=== PATIENT | female | born 1960 | race Caucasian/White ===

== ENCOUNTER 2017-04-18 14:32 | Inpatient (IN) | payer OTHER ==
[2017-04-18] MEDS ORDERED: VANCOMYCIN 1 GM in NS 250 ML IV ONE (14:54)
[2017-04-18] MEDS ORDERED: NS 1,000 ML IV ONE (14:54)
--- NOTE | 2017-04-18 15:07 | EDPHY ---
H & P Stated Complaint: redness left inner thigh - Personal History Current Tetanus/Diphtheria Vaccine: Yes Current Tetanus Diphtheria and Acellular Pertussis (TDAP): Yes Tetanus Vaccine Date: last 5 years - Medical/Surgical History Hx Asthma: No Hx Chronic Respiratory Disease: No Hx Diabetes: Yes Hx Cardiac Disease: No Hx Renal Disease: No Hx Cirrhosis: No Hx Alcoholism: No Hx HIV/AIDS: No Hx Splenectomy or Spleen Trauma: No Other PMH: type 2 diabetes,peripheral neuropathy - Social History Smoking Status: Never smoked Time Seen by Provider: 04/18/17 14:39 HPI/ROS: CHIEF COMPLAINT: Warm, red, tender inner thigh HISTORY OF PRESENT ILLNESS: This is a 56-year-old female with history of diabetes who reports that the right inner thigh has felt tender and sore for the last several days. She noticed increasing redness and warmth over the last 2-3 days. Developed a fever today. Reports not feeling well some nausea. No vomiting. No bite, or trauma to this area. Patient does states she had a bug bite to the sole of her foot several weeks ago which has since healed. No history of deep venous thrombus. No chills, shortness of breath, or chest pain. No palpitations. No lightheadedness or dizziness. REVIEW OF SYSTEMS: Aside from elements discussed in the HPI, a comprehensive 10-point review of systems was reviewed and is negative. PAST MEDICAL HISTORY: Diabetes SOCIAL HISTORY: Patient is . Nonsmoker. Recently changed her [employer] insurance. VITAL SIGNS: see nurse's notes. Temperature 37.1degrees. Heart rate 78. GENERAL: Well-developed, well-nourished, in no acute distress. HEENT: Normal, no discharge or icterus, moist mucous membranes. Neck: supple, FROM. LUNGS: Clear to auscultation bilaterally, no wheezes, rhonchi or rales. CARDIAC: Regular rate and rhythm, no rubs, murmurs or gallops. ABDOMEN: Soft, nontender, nondistended, bowel sounds normal. BACK: No CVA tenderness. No vertebral tenderness. EXTREMITIES: Left lower extremity: 16 cm x 15 cm area of erythema and warmth on the medial aspect of the left thigh. Centrally there is a darker, linear, 2 cm x 11 cm firm, tender, not fluctuant area. NEURO: Alert and oriented, grossly nonfocal. SKIN: Warm and dry, no rash. (Hali Chiu) Constitutional: Initial Vital Signs Temperature (C) 37.1 C 04/18/17 14:42 Heart Rate 78 04/18/17 14:42 Respiratory Rate 16 04/18/17 14:42 Blood Pressure 144/99 H 04/18/17 14:42 O2 Sat (%) 93 04/18/17 14:42 O2 Delivery Mode Room Air O2 (L/minute) 36.8 Allergies/Adverse Reactions: No Known Allergies Allergy (Unverified 04/18/17 14:46) Home Medications: Medication Instructions Recorded Glyburide 04/18/17 Losartan Potassium [Cozaar] 04/18/17 Metformin 1000 mg 04/18/17 Medical Decision Making - Diagnostics Imaging Results: Imaging Impressions Extremity Venous Study 04/18/17 14:58 Impression: 1. No evidence of deep vein thrombosis in the left lower extremity. 2. Thigh cellulitis with a reactive inguinal node. Results discussed with Dr. Mccain at 5:00 PM. Imaging Impressions Extremity Venous Study 04/18/17 14:58 Impression: 1. No evidence of deep vein thrombosis in the left lower extremity. 2. Thigh cellulitis with a reactive inguinal node. Results discussed with Dr. Mccain at 5:00 PM. Ultrasound reviewed by me and discussed with Dr. Angeles consistent with cellulitis. No evidence for abscess or DVT (Olman Mccain) ED Course/Re-evaluation: 56-year-old female with diabetes presents with several days of left inner thigh pain, warmth, and fever today. Exam demonstrates a cellulitis with a central tender, firm, linear area. Plan for IV, labs, vancomycin, ultrasound to evaluate for superficial versus deep thrombus versus abscess. Patient's care assumed by Dr. Mccain at 3:10 p.m.. (Hali Chiu) Patient seen by me at 3:30 p.m.. I reviewed the history she has diabetes. She had some redness and tenderness over the last several days but she tells me that specially today it has gotten much worse including redness, swelling, pain. On exam the patient has fairly large area of cellulitis in the upper medial left thigh. There is a central tender firm area that may represent abscess. Patient is receiving IV vancomycin. Ultrasound has been ordered and master motorcycle technician is coming to [facility] to perform ultrasound. I have reviewed the labs and note elevated white blood cell count and lactate. Initial lactate is 4.2. Patient is receiving vancomycin. Repeat lactate is ordered. Fluids at 30 male per kg bolus is also ordered. We are awaiting ultrasound results Repeat lactate is 2.8. 5:30 p.m. patient and I discussed imaging studies and laboratory evaluation. We discussed treatment plan and recommendation for admission. She expresses understanding and agreement I consulted and discussed case with Dr. Vanegas, hospitalist, at [facility]. She agrees to the admission. She also recommends we add Zosyn to the patient's antibiotics to also cover urinary tract infection ( Olman Mccain) Differential Diagnosis: Differential diagnoses for the patient's symptom complex was considered including but not limited to cellulitis, abscess, superficial thrombophlebitis with surrounding cellulitis, deep venous thrombus , deep space infection. ( Hali Chiu) - Data Points Laboratory Results: Laboratory Results 04/18/17 15:05 04/18/17 15:05 04/18/17 04/18/17 04/18/17 17:00 16:45 15:05 WBC 12.17 10^3/uL H 10^3/uL (3.80-9.50) RBC 4.57 10^6/uL 10^6/uL (4.18-5.33) Hgb 15.0 g/dL g/dL (12.6-16.3) Hct 42.1 % % (38.0-47.0) MCV 92.1 fL fL (81.5-99.8) MCH 32.8 pg pg (27.9-34.1) MCHC 35.6 g/dL g/dL (32.4-36.7) RDW 11.9 % % (11.5-15.2) Plt Count 213 10^3/uL 10^3/uL (150-400) MPV 11.3 fL fL (8.7-11.7) Neut % (Auto) 75.8 % H % (39.3-74.2) Lymph % (Auto) 14.7 % L % (15.0-45.0) [place] % (Auto) 8.0 % % (4.5-13.0) Eos % (Auto) 0.6 % % (0.6-7.6) Baso % (Auto) 0.4 % % (0.3-1.7) Nucleat RBC Rel Count 0.0 % % (0.0-0.2) Absolute Neuts (auto) 9.23 10^3/uL H 10^3/uL (1.70-6.50) Absolute Lymphs (auto) 1.79 10^3/uL 10^3/uL (1.00-3.00) Absolute Monos (auto) 0.97 10^3/uL H 10^3/uL (0.30-0.80) Absolute Eos (auto) 0.07 10^3/uL 10^3/uL (0.03-0.40) Absolute Basos (auto) 0.05 10^3/uL 10^3/uL (0.02-0.10) Absolute Nucleated RBC 0.00 10^3/uL 10^3/uL (0-0.01) Immature Gran % 0.5 % % (0.0-1.1) Immature Gran # 0.06 10^3/uL 10^3/uL (0.00-0.10) VBG Lactic Acid 2.8 mmol/L H D mmol/L (0.7-2.1) Sodium Potassium Chloride Carbon Dioxide Anion Gap BUN Creatinine Estimated GFR Glucose Calcium Urine Color DARK YELLOW Urine Appearance HAZY Urine pH 5.5 (5.0-7.5) Ur Specific [place] >= 1.030 (1.002-1.030) Urine Protein 1+ H (NEGATIVE) Urine Ketones 1+ H (NEGATIVE) Urine Blood TRACE H (NEGATIVE) Urine Nitrate POSITIVE H (NEGATIVE) Urine Bilirubin POSITIVE H (NEGATIVE) Urine Urobilinogen 1.0 EU EU (0.2-1.0) Ur Leukocyte Esterase TRACE H (NEGATIVE) Urine RBC 1-3 /hpf /hpf (0-3) Urine WBC 5-10 /hpf H /hpf (0-3) Ur Epithelial Cells 1+ /lpf /lpf (NONE-1+) Urine Bacteria 4+ /hpf H /hpf (NONE SEEN) Hyaline Casts OCCASIONAL /lpf /lpf (0-1) Urine Mucus 2+ /lpf H /lpf (NONE-1+) Urine Yeast PRESENT /hpf /hpf (NONE SEEN) Urine Glucose 2+ H (NEGATIVE) 04/18/17 04/18/17 15:05 15:05 WBC RBC Hgb Hct MCV MCH MCHC RDW Plt Count MPV Neut % (Auto) Lymph % (Auto) [place] % (Auto) Eos % (Auto) Baso % (Auto) Nucleat RBC Rel Count Absolute Neuts (auto) Absolute Lymphs (auto) Absolute Monos (auto) Absolute Eos (auto) Absolute Basos (auto) Absolute Nucleated RBC Immature Gran % Immature Gran # VBG Lactic Acid 4.2 mmol/L H mmol/L (0.7-2.1) Sodium 138 mEq/L mEq/L (134-144) Potassium 3.6 mEq/L mEq/L (3.5-5.2) Chloride 97 mEq/L mEq/L (97-110) Carbon Dioxide 21 mEq/l L mEq/l (22-31) Anion Gap 20 mEq/L H mEq/L (8-16) BUN 9 mg/dL mg/dL (7-23) Creatinine 0.5 mg/dL L mg/dL (0.6-1.0) Estimated GFR > 60 Glucose 234 mg/dL H mg/dL (70-100) Calcium 8.7 mg/dL mg/dL (8.5-10.4) Urine Color Urine Appearance Urine pH Ur Specific [place] Urine Protein Urine Ketones Urine Blood Urine Nitrate Urine Bilirubin Urine Urobilinogen Ur Leukocyte Esterase Urine RBC Urine WBC Ur Epithelial Cells Urine Bacteria Hyaline Casts Urine Mucus Urine Yeast Urine Glucose Medications Given: Discontinued Medications Acetaminophen (Tylenol) 1,000 mg PO EDNOW ONE Stop: 04/18/17 15:12 Last Admin: 04/18/17 15:31 Dose: 1,000 mg Sodium Chloride (Ns) 1,000 mls @ 0 mls/hr IV ONCE ONE PRN Reason: Wide Open Stop: 04/18/17 14:55 Last Admin: 04/18/17 15:22 Dose: 1,000 mls Vancomycin HCl 1 gm/ Sodium (Chloride) 250 mls @ 250 mls/hr IV EDNOW ONE PRN Reason: Protocol Stop: 04/18/17 15:53 Last Admin: 04/18/17 15:15 Dose: 250 mls Sodium Chloride (Ns) 2,300 mls @ 4,600 mls/hr 30 ml/kg infuse over 30 min ( 2300 ml) IV EDNOW ONE Stop: 04/18/17 17:06 Last Admin: 04/18/17 16:38 Dose: 2,300 mls Departure - Departure Disposition: [facility] In[facility] Acute Clinical Impression: Severe sepsis Cellulitis Qualifiers: Site of cellulitis: extremity Site of cellulitis of extremity: lower extremity Laterality: left Qualified Code(s): L03.116 - Cellulitis of left lower limb Condition: Fair
[2017-04-18] MEDS ORDERED: ACETAMINOPHEN 500 MG TAB PO ONE (15:11)
[2017-04-18 15:13] LABS: % IMMATURE GRANULYOCYTES 0.5 % (0.0-1.1); ABSOLUTE IMMATURE GRANULOCYTES 0.06 10^3/uL (0.00-0.10); ADD DIFF? NO; ADD MORPH? NO; ADD SCAN? NO; ATYPICAL LYMPHOCYTE FLAG 30 (0-99); FRAGMENT RBC FLAG 0 (0-99); HEMATOCRIT 42.1 % (38.0-47.0); LEFT SHIFT FLG 0 (0-99); LIPEMIA HEMOLYSIS FLAG 90 (0-99); MEAN CELL HEMOGLOBIN 32.8 pg (27.9-34.1); MEAN CELL HEMOGLOBIN CONCENTR. 35.6 g/dL (32.4-36.7); MEAN CELL VOLUME 92.1 fL (81.5-99.8); MEAN PLATELET VOLUME 11.3 fL (8.7-11.7); PLATELET CLUMPS FLAG 0 (0-99); PLATELET COUNT 213 10^3/uL (150-400); RED BLOOD CELL COUNT 4.57 10^6/uL (4.18-5.33); RED CELL DISTRIBUTION WIDTH 11.9 % (11.5-15.2)
[2017-04-18 15:31] LABS: ANION GAP 20 mEq/L (8-16); CALCIUM 8.7 mg/dL (8.5-10.4); CARBON DIOXIDE 21 mEq/l (22-31); CHLORIDE 97 mEq/L (97-110); CREATININE 0.5 mg/dL (0.6-1.0); GLOMERULAR FILTRATION RATE > 60; GLUCOSE 234 mg/dL (70-100); POTASSIUM 3.6 mEq/L (3.5-5.2); SODIUM 138 mEq/L (134-144)
[2017-04-18] MEDS ORDERED: NS 2,300 ML IV ONE (16:37)
[2017-04-18 16:49] LABS: LEUKOCYTE ESTERASE,URINE TRACE (NEGATIVE); PH,URINE 5.5 (5.0-7.5)
[2017-04-18 16:53] LABS: COLOR DARK YELLOW; NITRITE,URINE POSITIVE (NEGATIVE)
[2017-04-18 16:57] LABS: BACTERIA 4+ /hpf (NONE SEEN); MUCUS 2+ /lpf (NONE-1+); YEAST PRESENT /hpf (NONE SEEN)
[2017-04-18 16:58] LABS: HYALINE CASTS OCCASIONAL /lpf (0-1)
[2017-04-18] MEDS ORDERED: PIPERACILLIN SODIUM/TAZOBACTAM 4.5 GM in NS 100 ML IV ONE (18:04)
[2017-04-18] MEDS ORDERED: D50W 25 GM/50 ML SYR IVP PRN (19:36)
[2017-04-18] MEDS ORDERED: ONDANSETRON 4 MG/2 ML VIAL IVP PRN (19:38)
[2017-04-18] MEDS ORDERED: ONDANSETRON DISINTEGRATING 4 MG TAB PO PRN (19:38)
[2017-04-18] MEDS ORDERED: PIPERACILLIN/TAZO 3.375 GM/DEX 50 ML IV SCH (20:00)
[2017-04-18] MEDS ORDERED: PIPERACILLIN/TAZO 4.5 GM/DEX 100 ML IV SCH (20:00)
--- NOTE | 2017-04-18 20:06 | PDGENHP ---
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 She was afebrile and hemodynamically stable on arrival to ED. She began feeling ill over the past 2-3 days with weakness, poor appetite and general malaise. She noticed some tenderness in her left thigh several days ago. Redness started 2 days ago and worsened today. When fever occurred today, she came to the ED. She reports a bug bite on her left foot and partially removes her sock to show where a previous bug bit occurred, which is now healed. When I removed her sock completely, she has a left 5th toe open wound, which she states has been present for several months. She has been treating this with antibiotic ointment. She recently changed insurance and does not have a PCP. She states her bg's run between 100' s and 300. She thinks her last a1c was less than 7. She denies CP, SOB, abdominal pain, N/V/D or urinary symptoms. In the ED, she received a 30 cc / kg fluid bolus after meeting criteria for severe sepsis. She was given a dose of IV Vancomycin and is admitted for further management. History Information - Allergies/Home Medication List Allergies/Adverse Reactions: No Known Allergies Allergy (Unverified 04/18/17 14:46) Home Medications: Glyburide 04/18/17 [Last Taken Unknown] Losartan Potassium [Cozaar] 04/18/17 [Last Taken Unknown] Metformin 1000 mg 04/18/17 [Last Taken Unknown] I have personally reviewed and updated: family history, medical history, social history, surgical history - Past Medical History diabetes type 2 Additional medical history: peripheral neuropathy, chronic left toe wound - Surgical History Reports: no pertinent surgical hx - Family History Positive for: non-pertinent - Social History Smoking Status: Never smoked Additional social history: Lives independently. Works in home care. . Review of Systems ROS: 10pt was reviewed & negative except for what was stated in HPI & below Physical Exam Temp Pulse Resp BP Pulse Ox 36.8 C 85 18 133/79 H 95 04/18/17 18:27 04/18/17 18:27 04/18/17 18:27 04/18/17 18:27 04/18/17 18:27 Constitutional: no apparent distress Eyes: PERRL Ears, Nose, Mouth, Throat: moist mucous membranes Cardiovascular: regular rate and rhythym, no murmur, rub, or gallop Respiratory: no respiratory distress, clear to auscultation Gastrointestinal: normoactive bowel sounds, soft, non-tender abdomen Skin: other (LLE medial thigh with large well demarcated area of erythema with central induration, no fluctuance, no palpable groin LAD) Musculoskeletal: other (Left 5th toe with open cracks on plantar and lateral aspect with vague surrounding erythema, no purulence) Neurologic: AAOx3 Psychiatric: interacting appropriately Lab Data & Imaging Review 04/18/17 15:05 04/18/17 15:05 WBC 12.17 10^3/uL (3.80-9.50) H 04/18/17 15:05 RBC 4.57 10^6/uL (4.18-5.33) 04/18/17 15:05 Hgb 15.0 g/dL (12.6-16.3) 04/18/17 15:05 Hct 42.1 % (38.0-47.0) 04/18/17 15:05 MCV 92.1 fL (81.5-99.8) 04/18/17 15:05 MCH 32.8 pg (27.9-34.1) 04/18/17 15:05 MCHC 35.6 g/dL (32.4-36.7) 04/18/17 15:05 RDW 11.9 % (11.5-15.2) 04/18/17 15:05 Plt Count 213 10^3/uL (150-400) 04/18/17 15:05 MPV 11.3 fL (8.7-11.7) 04/18/17 15:05 Neut % (Auto) 75.8 % (39.3-74.2) H 04/18/17 15:05 Lymph % (Auto) 14.7 % (15.0-45.0) L 04/18/17 15:05 [place] % (Auto) 8.0 % (4.5-13.0) 04/18/17 15:05 Eos % (Auto) 0.6 % (0.6-7.6) 04/18/17 15:05 Baso % (Auto) 0.4 % (0.3-1.7) 04/18/17 15:05 Nucleat RBC Rel Count 0.0 % (0.0-0.2) 04/18/17 15:05 Absolute Neuts (auto) 9.23 10^3/uL (1.70-6.50) H 04/18/17 15:05 Absolute Lymphs (auto) 1.79 10^3/uL (1.00-3.00) 04/18/17 15:05 Absolute Monos (auto) 0.97 10^3/uL (0.30-0.80) H 04/18/17 15:05 Absolute Eos (auto) 0.07 10^3/uL (0.03-0.40) 04/18/17 15:05 Absolute Basos (auto) 0.05 10^3/uL (0.02-0.10) 04/18/17 15:05 Absolute Nucleated RBC 0.00 10^3/uL (0-0.01) 04/18/17 15:05 Immature Gran % 0.5 % (0.0-1.1) 04/18/17 15:05 Immature Gran # 0.06 10^3/uL (0.00-0.10) 04/18/17 15:05 VBG Lactic Acid 2.8 mmol/L (0.7-2.1) H D 04/18/17 17:00 Sodium 138 mEq/L (134-144) 04/18/17 15:05 Potassium 3.6 mEq/L (3.5-5.2) 04/18/17 15:05 Chloride 97 mEq/L (97-110) 04/18/17 15:05 Carbon Dioxide 21 mEq/l (22-31) L 04/18/17 15:05 Anion Gap 20 mEq/L (8-16) H 04/18/17 15:05 BUN 9 mg/dL (7-23) 04/18/17 15:05 Creatinine 0.5 mg/dL (0.6-1.0) L 04/18/17 15:05 Estimated GFR > 60 04/18/17 15:05 Glucose 234 mg/dL (70-100) H 04/18/17 15:05 Calcium 8.7 mg/dL (8.5-10.4) 04/18/17 15:05 Urine Color DARK YELLOW 04/18/17 16:45 Urine Appearance HAZY 04/18/17 16:45 Urine pH 5.5 (5.0-7.5) 04/18/17 16:45 Ur Specific [place] >= 1.030 (1.002-1.030) 04/18/17 16:45 Urine Protein 1+ (NEGATIVE) H 04/18/17 16:45 Urine Ketones 1+ (NEGATIVE) H 04/18/17 16:45 Urine Blood TRACE (NEGATIVE) H 04/18/17 16:45 Urine Nitrate POSITIVE (NEGATIVE) H 04/18/17 16:45 Urine Bilirubin POSITIVE (NEGATIVE) H 04/18/17 16:45 Urine Urobilinogen 1.0 EU (0.2-1.0) 04/18/17 16:45 Ur Leukocyte Esterase TRACE (NEGATIVE) H 04/18/17 16:45 Urine RBC 1-3 /hpf (0-3) 04/18/17 16:45 Urine WBC 5-10 /hpf (0-3) H 04/18/17 16:45 Ur Epithelial Cells 1+ /lpf (NONE-1+) 04/18/17 16:45 Urine Bacteria 4+ /hpf (NONE SEEN) H 04/18/17 16:45 Hyaline Casts OCCASIONAL /lpf (0-1) 04/18/17 16:45 Urine Mucus 2+ /lpf (NONE-1+) H 04/18/17 16:45 Urine Yeast PRESENT /hpf (NONE SEEN) 04/18/17 16:45 Urine Glucose 2+ (NEGATIVE) H 04/18/17 16:45 Assessment & Plan Assessment: Severe sepsis secondary to left medial thigh cellulitis in diabetic patient - source is likely open left 5th toe wound. Pt had fever of 101 at home, elevated wbc's and elevated lactate to 4.2 upon presentation. Lactate trending down s/p 30 cc/kg fluid bolus. Hemodynamically stable. No e/o abscess on u/s. Blood cultures pending. -broad spectrum atbx with Vanc and Zosyn for now -obtain culture of toe wound, f/u BCx's -trend lactate to <2.2 -check ESR -ID consult in am Diabetes type 2 - BG 230's on arrival. Takes Metformin and ?Glyburide, no recent outpt f/u. Awaiting med rec. -check a1c -dose adjusted insulin for hyperglycemia in setting of infection Diabetic toe wound - Chronic. No purulence, though will send culture. Check xray. Wound consult requested. Peripheral neuropathy - Start Gabapentin. DVT PPLX - Lovenox Full code Dispo - Inpt, will likely require >48 hrs hospitalization for ongoing management of LLE cellulitis and associated diabetic toe wound.
[2017-04-18] MEDS: GABAPENTIN 300 MG CAP PO SCH (20:50)
[2017-04-18] MEDS: metFORMIN HCL 500 MG TAB PO SCH (20:51)
[2017-04-18 20:58] LABS: HEMATOCRIT 38.4 % (38.0-47.0)
[2017-04-18] MEDS ORDERED: LOSARTAN POTASSIUM 50 MG TAB PO SCH (21:00)
[2017-04-18 21:03] LABS: ALBUMIN 3.4 g/dL (3.5-5.0); BILIRUBIN,TOTAL 1.3 mg/dL (0.1-1.4); BILIRUBIN-CONJUGATED 0.4 mg/dL (0.0-0.5); BILIRUBIN-UNCONJUGATED 0.9 mg/dL (0.0-1.1); TOTAL PROTEIN 6.2 g/dL (6.3-8.2)
[2017-04-18] MEDS: ATORVASTATIN CALCIUM 20 MG TAB PO SCH (21:50)
[2017-04-18] MEDS: INSULIN LISPRO 100 UNIT/ML SC SCH (22:42)
[2017-04-19 01:33] LABS: HEMOGLOBIN A1C 8.3 % (4.0-6.0)
[2017-04-19] MEDS: ERTAPENEM 1 GM in NS 100 ML IV SCH ×2 (02:53→17:53)
[2017-04-19] MEDS: VANCOMYCIN 1.25 GM in D5W 250 ML IV SCH ×2 (02:53→15:15)
[2017-04-19] MEDS: ACETAMINOPHEN 325 MG TAB PO PRN ×2 (03:00→13:04)
[2017-04-19 04:26] LABS: % IMMATURE GRANULYOCYTES 0.6 % (0.0-1.1); ABSOLUTE IMMATURE GRANULOCYTES 0.06 10^3/uL (0.00-0.10); ADD DIFF? NO; ADD MORPH? NO; ADD SCAN? NO; ATYPICAL LYMPHOCYTE FLAG 30 (0-99); FRAGMENT RBC FLAG 0 (0-99); HEMATOCRIT 36.4 % (38.0-47.0); HEMOGLOBIN 12.4 g/dL (12.6-16.3); LEFT SHIFT FLG 0 (0-99); LIPEMIA HEMOLYSIS FLAG 90 (0-99); MEAN CELL HEMOGLOBIN 32.4 pg (27.9-34.1); MEAN CELL HEMOGLOBIN CONCENTR. 34.1 g/dL (32.4-36.7); MEAN PLATELET VOLUME 11.1 fL (8.7-11.7); PLATELET CLUMPS FLAG 10 (0-99); PLATELET COUNT 181 10^3/uL (150-400); RED BLOOD CELL COUNT 3.83 10^6/uL (4.18-5.33); RED CELL DISTRIBUTION WIDTH 11.9 % (11.5-15.2)
[2017-04-19 04:40] LABS: ANION GAP 10 mEq/L (8-16); CALCIUM 7.8 mg/dL (8.5-10.4); CARBON DIOXIDE 24 mEq/l (22-31); CHLORIDE 105 mEq/L (97-110); CREATININE 0.6 mg/dL (0.6-1.0); GLOMERULAR FILTRATION RATE > 60; GLUCOSE 188 mg/dL (70-100); POTASSIUM 3.3 mEq/L (3.5-5.2); SODIUM 139 mEq/L (134-144)
[2017-04-19] MEDS ORDERED: INSULIN LISPRO 100 UNIT/ML SC SCH (08:00)
[2017-04-19] MEDS: INSULIN LISPRO 100 UNIT/ML SC SCH ×4 (08:05→22:35)
--- NOTE | 2017-04-19 11:44 | WOCRNPDOC ---
WOCRN Advanced Assessment Note - Skin Integrity Problem, Advanced Assess Left Fifth Toe Dressing Type: Gauze, Zainab Dressing Description: Clean/Dry, Intact Exudate Amount: None Exudate Characteristic(s): None Integumentary Issue Intervention: Dressing Applied, Silver Gel Applied Kalyn Wound Tissue: Erythema (extending onto dorsum of L foot), Calloused, Hyperkeratotic Kalyn Wound Swelling: None Wound Bed Color: Red Wound Bed Constitution: Smooth Tissue Wound Edges: Thick Site Odor: None Site Measurement - Head-to-Toe Length X Width X Depth (cm): Fissure at base of 5th toe: 0.1cmx1.2cmx0.1cm. Fissure extending down onto 5th metatarsal: 1.3cmx0.1cmx0.1cm Skin Integrity Problem Comment: Two, discrete fissures noted on the lateral and plantar aspects of patient's L 5th toe and L 5th metatarsal. Kalyn-wound tissue is hyperkeratotic, consistent w/ dx of diabetes. Patient reports neuropathy in this extremity, saying "I can't feel that toe when you touch it." Given the erythema extending onto the dorsum of this foot, it is possible that patient's cellulitis originated from these wounds. Both wound beds are dry, comprised of smooth tissue, w/ no apparent necrosis noted. Silvasorb gel was applied, and site was covered w/ Hydrofera Blue Ready dressing, both of which have anti- microbial properties. Patient education regarding daily inspection of feet and types of lotions for diabetic skin. Patient advised to make an appointment w/ a transitions manager in the outpatient setting to follow up on these wounds. Wound care will see patient next Thursday 04/26 for a follow up if she remains inpatient. backup operator [place] present and assisting,
--- NOTE | 2017-04-19 13:58 | HOSPPROG ---
Hospitalist Progress Note Assessment/Plan: This is a 56 y/o Diabetic female new to my care on 04/19/17 presenting with #Severe sepsis secondary to left medial thigh cellulitis (improving) source is likely open left 5th toe wound. -Continue Erta/vanco D#2 -ID consult pending #Diabetes type 2 with stress hyperglycemia in the setting of infection a1c 8.3 -will continue homes meds + correctional insulin as ordered -ADA diet Diabetic toe wound - Chronic. -xray neg for osteo Peripheral neuropathy -continue Gabapentin started on admission. DVT PPLX - Lovenox Full code Dispo - Inpt, will likely require >48 hrs hospitalization for ongoing management of LLE cellulitis and associated diabetic toe wound. Subjective: continues to have severe swelling and redness over left thigh. improving pain. improving fever Objective: Vital Signs Temp Pulse Resp BP Pulse Ox 36.4 C 89 18 136/82 H 93 04/19/17 12:00 04/19/17 12:00 04/19/17 12:00 04/19/17 12:00 04/19/17 12:00 Microbiology 04/18/17 20:00 Gram Stain - Final Toe - Swab Laboratory Results 04/19/17 04:20 04/19/17 04:20 04/18/17 04/19/17 04/20/17 05:59 05:59 05:59 Intake Total 3000 Balance 3000 foot xray reviewed and negative for osteo - Physical Exam Constitutional: no apparent distress, appears nourished, not in pain Cardiovascular: regular rate and rhythym, no murmur, rub, or gallop, No edema Respiratory: no respiratory distress, no rales or rhonchi, clear to auscultation Skin: warm (left thigh), no fluctuance, erythema (left thigh), other ( induration without fluctuance over left medial thigh ) ICD10 Worksheet Patient Problems: Problems Problem Status Onset Cellulitis Acute Severe sepsis Acute
[2017-04-19] MEDS: ASPIRIN 81 MG CHEWABLE TAB PO SCH (17:53)
[2017-04-19] MEDS: ENOXAPARIN 40 MG/0.4 ML SYR SC SCH (17:53)
[2017-04-19] MEDS: GLIMEPIRIDE 2 MG TAB PO SCH (17:54)
[2017-04-19] MEDS: FLUoxetine 20 MG CAP PO SCH (17:54)
[2017-04-19] MEDS: GABAPENTIN 300 MG CAP PO SCH ×2 (17:54→21:14)
[2017-04-19] MEDS: metFORMIN HCL 500 MG TAB PO SCH ×2 (17:54→21:14)
[2017-04-19] MEDS: LOSARTAN POTASSIUM 50 MG TAB PO SCH (17:54)
--- NOTE | 2017-04-19 19:20 | GCON ---
[f rep st] CONSULTATION INPATIENT INFECTIOUS DISEASE CONSULTATION REFERRING PHYSICIAN: Angela Vanegas MD REASON FOR REFERRAL: Left lower extremity inguinal and medial thigh cellulitis with chronic open le ft 5th toe wound. HISTORY OF PRESENT ILLNESS: The patient is a 56-year-old female, who is diabetic with significant l ower extremity neuropathy, who has a chronic left 5th toe open wound. The patient was seen in the E on 04/18/17 and subsequently admitted secondary to fever and medial thigh redness on the left side . The patient has been sick for approximately 1 week, with general malaise, weakness, and poor appe tite. She noticed that the tenderness in her left thigh began approximately 3 days prior to admissi on. Fever and chills occurred the day prior to presentation. Today, she feels no worse than yester day, perhaps a slight bit better. She was placed empirically on ertapenem and vancomycin from the e mergency room. She has no objective fever since admission. PAST MEDICAL HISTORY: 1. Diabetes type 2. 2. Peripheral neuropathy, bilateral lower extremities. 3. Chronic diabetic foot wound, left 5th toe. PAST SURGICAL HISTORY: Denies. ANTIBIOTICS: 1. Vancomycin. 2. Ertapenem. ALLERGIES: The patient has hives to Zosyn. SOCIAL HISTORY: The patient denies any tobacco use. No significant alcohol or drug use. She is ma rried and lives independently. FAMILY HISTORY: Not contributory. REVIEW OF SYSTEMS: Other than that detailed above in History of Present Illness, a comprehensive 10 -system review is negative. PHYSICAL EXAMINATION: VITAL SIGNS: Temperature maximum is 37.4. Temp current is 36.8. Heart rate is 85. Respiratory rate is 16. Blood pressure is 124/88. GENERAL: The patient is a well-formed, well-nourished middle-aged female in no acute distress. She is not toxic in appearance. She is al ert and oriented x3. She has a pleasant demeanor. HEENT: Normocephalic for age. Atraumatic. No scleral icterus. No oral lesion or drainage from the nares. Eyes, lids, and conjunctivae are withi n normal limits. Pupils are equal and round bilaterally. NECK: Supple. No meningismus. LUNGS: Clear to auscultation bilaterally with good effort. HEART: Regular rate and rhythm. No significan t peripheral edema. SKIN: Warm and dry to the touch. No rash noted. The patient does have some c onfluent erythema in the inguinal and upper medial thigh on the left side. This is warm and mildly tender to palpation. MUSCULOSKELETAL: No muscle belly tenderness is noted. No joint line effusion or arthritis is seen. NEURO: Cranial nerves 2-12 seem to be intact. Peripheral sensation is decr eased in bilateral lower extremities. LABORATORY DATA: The patient has a CBC, dated 04/19/17, showing a white blood cell count of 10.4, h emoglobin of 12.4, hematocrit 36.4, platelet count of 181. Differential is within normal limits. S tanya chemistries on 04/19/17 show sodium of 139, potassium of 3.3, chloride of 105, bicarbonate of 2 4, BUN of 7, and creatinine of 0.6. Hemoglobin A1c is 8.3. Urinalysis on 04/18/17 shows 1+ protein , 5-10 white cells per high-power field. MICROBIOLOGIC DATA: The patient has a wound swab of her left 5th toe from 04/18/17 which is growing Staphylococcus aureus as well as group A strep. Blood cultures from 04/18/17 are pending. ASSESSMENT: Probable ascending lymphangitis secondary to local infection of the left 5th toe. The patient is currently covered on both vancomycin and ertapenem. This is most likely going to be ei er staphylococcal or streptococcal. Blood cultures thus far are negative, although these may turn p ositive in the next 24-48 hours. At this point, we will continue both vancomycin and ertapenem, owmarizol duran to the broadened polymicrobial possibilities in a diabetic foot wound. We will follow her clinic ally. PLAN: 1. Continue both vancomycin and ertapenem. 2. Follow clinical appearance of the erythema. 3. Follow laboratory and culture data. /[id number]/MODL
[2017-04-19] MEDS: ATORVASTATIN CALCIUM 20 MG TAB PO SCH (21:14)
[2017-04-19] MEDS ORDERED: CALCIUM CARBONATE 500 MG CHEWABLE TAB PO PRN (21:39)
[2017-04-19] MEDS: oxyCODONE IR 5 MG TAB PO PRN (22:08)
[2017-04-20] MEDS: VANCOMYCIN 1.25 GM in D5W 250 ML IV SCH (02:49)
[2017-04-20] MEDS: oxyCODONE IR 5 MG TAB PO PRN ×3 (03:35→20:43)
[2017-04-20] MEDS: GLIMEPIRIDE 2 MG TAB PO SCH (08:21)
[2017-04-20] MEDS: FLUoxetine 20 MG CAP PO SCH (08:21)
[2017-04-20] MEDS: ASPIRIN 81 MG CHEWABLE TAB PO SCH (08:21)
[2017-04-20] MEDS: GABAPENTIN 300 MG CAP PO SCH ×2 (08:21→20:43)
[2017-04-20] MEDS: LOSARTAN POTASSIUM 50 MG TAB PO SCH (08:22)
[2017-04-20] MEDS: metFORMIN HCL 500 MG TAB PO SCH ×2 (08:22→20:43)
[2017-04-20] MEDS: ENOXAPARIN 40 MG/0.4 ML SYR SC SCH (08:25)
--- NOTE | 2017-04-20 08:33 | HOSPPROG ---
Hospitalist Progress Note Assessment/Plan: #Left leg cellulitis: improved from previously marked area. Still with redness/ induration. -Vanc, Ertapenem. Appreciate ID consultation #Controlled DM: cont home meds #Benign HTN: home meds #Diabetic neuropathy: gabapentin #Leukocytosis: improved on abx #HLD: statin #Diet: regular #DVT ppx: Lovenox #Disp: cont inpt care for cont IV abx Subjective: mild abdominal discomfort Objective: Vital Signs Temp Pulse Resp BP Pulse Ox 36.7 C 80 18 133/94 H 91 L 04/20/17 08:19 04/20/17 08:19 04/20/17 08:19 04/20/17 08:19 04/20/17 08:19 Microbiology 04/18/17 20:00 Gram Stain - Final Toe - Swab Laboratory Results 04/19/17 04:20 04/19/17 04:20 04/19/17 04/20/17 04/21/17 05:59 05:59 05:59 Intake Total 3000 1650 Balance 3000 1650 - Physical Exam Constitutional: no apparent distress Eyes: PERRL Ears, Nose, Mouth, Throat: moist mucous membranes Cardiovascular: regular rate and rhythym Respiratory: no respiratory distress Gastrointestinal: normoactive bowel sounds Genitourinary: no bladder fullness Skin: other (left foot wrapped without drainage. Left inner thigh with small area of erythema with induration, size of golf ball. TTP) Musculoskeletal: full muscle strength Psychiatric: interacting appropriately ICD10 Worksheet Patient Problems: Problems Problem Status Onset Cellulitis Acute Severe sepsis Acute
[2017-04-20] MEDS: ERTAPENEM 1 GM in NS 100 ML IV SCH (08:39)
[2017-04-20] MEDS: INSULIN LISPRO 100 UNIT/ML SC SCH ×4 (09:18→21:08)
--- NOTE | 2017-04-20 12:15 | PCMIDPN ---
Assessment/Plan: Assessment/Plan: 1. Left thigh cellulitis: - very small blisters noted. induration in mid thigh present, without area of fluctuance. -now on invanz therapy. - toe cx with MSSA, Group A strep. superficial wound -continue with leg elevation. Meds invanz Subjective: Afebrile. feels better today overall. less pain. redness is improving also. does have loose stools with occasional cramping. eating is better. denies sob. had some perhaps flushing with vanco. Objective: Vital Signs Temp Pulse Resp BP Pulse Ox 36.7 C 80 18 133/94 H 91 L 04/20/17 08:19 04/20/17 08:19 04/20/17 08:19 04/20/17 08:19 04/20/17 08:19 Microbiology 04/18/17 20:00 Gram Stain - Final Toe - Swab Laboratory Results 04/19/17 04:20 04/19/17 04:20 04/19/17 04/20/17 04/21/17 05:59 05:59 05:59 Intake Total 3000 1650 800 Balance 3000 1650 800 ESR 19 MM/HR (0-30) 04/18/17 20:30 - Physical Exam General Appearance: alert, no apparent distress Respiratory: lungs clear Cardiac/Chest: regular rate, rhythm Extremities: swelling Abdomen: normal bowel sounds, non-tender, soft, No distended Skin: erythema (left thigh. induration present in the middle with tiny blisters. tender at that spot. erythema has retracted from areas of demarcation. ) ICD10 Worksheet Patient Problems: Problems Problem Status Onset Cellulitis Acute Severe sepsis Acute
[2017-04-20] MEDS: ATORVASTATIN CALCIUM 20 MG TAB PO SCH (20:43)
[2017-04-21 04:30] LABS: HEMATOCRIT 37.7 % (38.0-47.0); HEMOGLOBIN 13.1 g/dL (12.6-16.3); MEAN CELL HEMOGLOBIN 32.2 pg (27.9-34.1); MEAN CELL HEMOGLOBIN CONCENTR. 34.7 g/dL (32.4-36.7); MEAN CELL VOLUME 92.6 fL (81.5-99.8); RED BLOOD CELL COUNT 4.07 10^6/uL (4.18-5.33); RED CELL DISTRIBUTION WIDTH 11.6 % (11.5-15.2)
[2017-04-21 04:49] LABS: ANION GAP 12 mEq/L (8-16); CALCIUM 8.8 mg/dL (8.5-10.4); CARBON DIOXIDE 24 mEq/l (22-31); CHLORIDE 105 mEq/L (97-110); CREATININE 0.6 mg/dL (0.6-1.0); GLOMERULAR FILTRATION RATE > 60; GLUCOSE 121 mg/dL (70-100); POTASSIUM 3.7 mEq/L (3.5-5.2); SODIUM 141 mEq/L (134-144)
[2017-04-21] MEDS: INSULIN LISPRO 100 UNIT/ML SC SCH ×4 (07:50→20:49)
--- NOTE | 2017-04-21 08:13 | HOSPPROG ---
Hospitalist Progress Note Assessment/Plan: #Left leg cellulitis: Strep -ID changed to Ancef today who explained risk of cross-reactivity with PCN- allergy. -negative U/S for DVT #Severe sepsis: due to above. Resolved #E coli UTI: covered by abx #Controlled DM: cont home meds #Benign HTN: home meds #Diabetic neuropathy: gabapentin #Leukocytosis: improved on abx #HLD: statin #Diet: regular #DVT ppx: Lovenox #Disp: cont inpt care for cont IV abx. If tolerating, can likely DC tomorrow Subjective: less pain over thigh Objective: Vital Signs Temp Pulse Resp BP Pulse Ox 36.8 C 83 18 116/87 H 94 04/21/17 07:28 04/21/17 07:28 04/21/17 07:28 04/21/17 07:28 04/21/17 07:28 Microbiology 04/18/17 20:00 Gram Stain - Final Toe - Swab Laboratory Results 04/21/17 03:58 04/21/17 03:58 04/20/17 04/21/17 04/22/17 05:59 05:59 05:59 Intake Total 1650 3000 Balance 1650 3000 - Physical Exam Constitutional: no apparent distress, obese Eyes: PERRL Ears, Nose, Mouth, Throat: moist mucous membranes Cardiovascular: regular rate and rhythym Respiratory: no respiratory distress, no rales or rhonchi Gastrointestinal: normoactive bowel sounds, soft, non-tender abdomen Genitourinary: no bladder fullness, no bladder tenderness Skin: warm Musculoskeletal: other (left thigh with less overall erythema. Bright red area size of hald-dollar still present with induration; less TTP today) Neurologic: AAOx3 Psychiatric: interacting appropriately ICD10 Worksheet Patient Problems: Problems Problem Status Onset Cellulitis Acute Severe sepsis Acute
[2017-04-21] MEDS: ENOXAPARIN 40 MG/0.4 ML SYR SC SCH (08:19)
[2017-04-21] MEDS: GLIMEPIRIDE 2 MG TAB PO SCH (08:20)
[2017-04-21] MEDS: metFORMIN HCL 500 MG TAB PO SCH ×2 (08:20→20:49)
[2017-04-21] MEDS: ASPIRIN 81 MG CHEWABLE TAB PO SCH (08:20)
[2017-04-21] MEDS: ERTAPENEM 1 GM in NS 100 ML IV SCH (08:20)
[2017-04-21] MEDS: GABAPENTIN 300 MG CAP PO SCH ×2 (08:20→20:49)
[2017-04-21] MEDS: FLUoxetine 20 MG CAP PO SCH (08:20)
[2017-04-21] MEDS: LOSARTAN POTASSIUM 50 MG TAB PO SCH (09:17)
--- NOTE | 2017-04-21 14:26 | PCMIDPN ---
Assessment/Plan: 56 yo female with h/o type 2 diabetes and peripheral neuropathy : # L medial thigh cellulitis, portal of entry wound on L 5th toe. Pale erythema remains medial thigh, this is my 1st visit but patient reports improvement. Wound cx show MSSA, GAS. Clinically appears strep mediated. --dc ertapenem --start cefazolin carefully with known hives to zosyn, but cross reactivity <5% ; reviewed risks antibiotic changes including recurrent allergic reaction with patient and she is aware --likely dc tomorrow if continued clinical improvement --follow up with Podiatry/wound care meds ertapenem 1gm IV daily, # 3 DVT study 1. No evidence of deep vein thrombosis in the left lower extremity. 2. Thigh cellulitis with a reactive inguinal node. Subjective: feels better reports redness less intense left medial thigh Reports no feeling in feet for 10 years Objective: Vital Signs Temp Pulse Resp BP Pulse Ox 36.6 C 89 18 123/84 H 94 04/21/17 11:46 04/21/17 11:46 04/21/17 11:46 04/21/17 11:46 04/21/17 11:46 Microbiology 04/18/17 20:00 Gram Stain - Final Toe - Swab Laboratory Results 04/21/17 03:58 04/21/17 03:58 04/20/17 04/21/17 04/22/17 05:59 05:59 05:59 Intake Total 1650 3000 Balance 1650 3000 ESR 19 MM/HR (0-30) 04/18/17 20:30 - Physical Exam General Appearance: alert, no apparent distress Respiratory: lungs clear, No accessory muscle use Neck: supple Cardiac/Chest: regular rate, rhythm Extremities: erythema (Left medial thigh with central area with more intense erythema and induration that is approximately the size of half-dollar but no fluctuance), other (Left 5th toe with lateral circumferential crack no discharge or erythema currently) Peripheral Pulses: 2+: dorsalis-pedis (R), dorsalis-pedis (L) Neuro/Psych: alert, normal mood/affect, oriented x 3 ICD10 Worksheet Patient Problems: Problems Problem Status Onset Cellulitis Acute Severe sepsis Acute
[2017-04-21] MEDS: ATORVASTATIN CALCIUM 20 MG TAB PO SCH (20:49)
[2017-04-21] MEDS: oxyCODONE IR 5 MG TAB PO PRN (20:55)
[2017-04-22 05:06] LABS: ANION GAP 13 mEq/L (8-16); CALCIUM 8.7 mg/dL (8.5-10.4); CARBON DIOXIDE 23 mEq/l (22-31); CHLORIDE 105 mEq/L (97-110); CREATININE 0.7 mg/dL (0.6-1.0); GLOMERULAR FILTRATION RATE > 60; GLUCOSE 132 mg/dL (70-100); POTASSIUM 3.8 mEq/L (3.5-5.2); SODIUM 141 mEq/L (134-144)
[2017-04-22] MEDS: INSULIN LISPRO 100 UNIT/ML SC SCH ×2 (07:26→13:08)
[2017-04-22 08:00] VITALS: RESP 16
[2017-04-22] MEDS: ENOXAPARIN 40 MG/0.4 ML SYR SC SCH (09:20)
[2017-04-22] MEDS: FLUoxetine 20 MG CAP PO SCH (09:21)
[2017-04-22] MEDS: GLIMEPIRIDE 2 MG TAB PO SCH (09:21)
[2017-04-22] MEDS: ASPIRIN 81 MG CHEWABLE TAB PO SCH (09:21)
[2017-04-22] MEDS: GABAPENTIN 300 MG CAP PO SCH (09:21)
[2017-04-22] MEDS: LOSARTAN POTASSIUM 50 MG TAB PO SCH (09:21)
[2017-04-22] MEDS: metFORMIN HCL 500 MG TAB PO SCH (09:22)
--- NOTE | 2017-04-22 09:33 | HOSPPROG ---
Hospitalist Progress Note Assessment/Plan: #Left leg cellulitis: Strep -ID changed to Ancef without reaction. -negative U/S for DVT #Severe sepsis: due to above. Resolved #E coli UTI: covered by abx #Controlled DM: cont home meds #Benign HTN: home meds #Diabetic neuropathy: gabapentin #Leukocytosis: improved on abx #HLD: statin #Diet: regular #DVT ppx: Lovenox #Disp: DC today once determine abx plan with ID Subjective: feels better. Less pain in thigh Objective: Vital Signs Temp Pulse Resp BP Pulse Ox 36.8 C 69 16 139/93 H 95 04/22/17 07:59 04/22/17 07:59 04/22/17 07:59 04/22/17 07:59 04/22/17 07:59 Microbiology 04/18/17 20:00 Gram Stain - Final Toe - Swab Wound Culture - Final Staphylococcus Aureus Streptococcus Pyogenes Grp A Laboratory Results 04/21/17 03:58 04/22/17 04:17 04/21/17 04/22/17 04/23/17 05:59 05:59 05:59 Intake Total 3000 1250 450 Balance 3000 1250 450 - Physical Exam Constitutional: no apparent distress, other (appears brighter today) Eyes: PERRL Ears, Nose, Mouth, Throat: moist mucous membranes, hearing normal Cardiovascular: regular rate and rhythym, no murmur, rub, or gallop Respiratory: no respiratory distress, no rales or rhonchi Gastrointestinal: normoactive bowel sounds, soft, non-tender abdomen Genitourinary: no bladder fullness, no bladder tenderness Skin: warm Musculoskeletal: other (left thigh erythema mininmal. Center lesion still red with induration and TTP) Neurologic: AAOx3 Psychiatric: interacting appropriately Lymph, Heme, Immunologic: no cervical LAD ICD10 Worksheet Patient Problems: Problems Problem Status Onset Cellulitis Acute Severe sepsis Acute
[2017-04-22 11:51] VITALS: PULSE 80
[2017-04-22 15:35] VITALS: BP 132/86; TEMP 97.8; O2SAT 93
--- NOTE | 2017-04-22 17:16 | GDS ---
[f rep st] DISCHARGE SUMMARY DISCHARGE DIAGNOSES: 1. Severe sepsis. 2. Controlled diabetes type 2. 3. Diabetic toe wound. 4. Left lower extremity cellulitis. 5. Neuropathy. 6. Escherichia coli urinary tract infection. 7. Benign hypertension. 8. Leukocytosis. 9. Hyperlipidemia. CONSULTATIONS: Infectious Disease. HISTORY OF PRESENT ILLNESS: Patient is a 56-year-old female with a history of diabetes, peripheral neuropathy, hypertension, and a chronic left 5th toe wound , who presented to [facility] complaining of redness and pain in the left medial thigh with a fever of 101 at home. She was stable and afebrile on arrival to the emergency room. She had 2-3 days of weakness, poor appetite, and general malaise. She noticed tenderness in the left thigh several days ago, worse on day of admission. She reports a bug bite on her left foot and partially removed the sock to show where it was, which is now healed. Upon initial examination, she had a left 5th toe open wound that has been there for several months. HOSPITAL COURSE: 1. 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 This was accompanied with left thigh cellulitis and was treated initially with vancomycin and ertapenem. She was then transitioned to Ancef without allergic reaction given history of penicillin allergy. She will be transitioned to Keflex to complete a total of 14 days of antibiotics. 2. Left lower extremity cellulitis, again secondary to foot. Plan again is Keflex for 9 more days. Follow up with Podiatry. 3. Controlled diabetes: Continue orals. She should establish care with a PCP. 4. Leukocytosis secondary to acute infection. This resolved with antibiotics. 5. Benign hypertension: Continue home medications. 6. Peripheral neuropathy: Patient was started on gabapentin with much improved symptoms. I will discharge her with this. She should follow up with a PCP for up titration. 7. Hyperlipidemia: On statin. DISPOSITION: Patient is stable for discharge. DISCHARGE MEDICATIONS: New medications: Keflex and gabapentin. FOLLOWUP: With her PCP and Dr. Gaona with Podiatry. /[id number]/MODL MTDD
--- NOTE | 2017-04-22 17:30 | PCMIDPN ---
Assessment/Plan: Assessment: Left medial thigh cellulitis. Resolving with treatment. Currently tolerating Ancef without problem. Suspect this is staphylococcal or streptococcal. Most likely streptococcal. Likely portal of entry is the 5th toe where she has a chronic ulceration. At this point feel that she is improved enough to switch over to oral Keflex 500 mg p.o. four times daily for another 10 days. Patient does have a a small residual area of induration roughly 1 cm in diameter on the inner left thigh. I do not think there is fluid or abscess underneath that. I think it will resolve with antibiotic therapy alone. Nevertheless will follow up in clinic early next week. Plan: 1. Discontinue cefazolin. 2. Start Keflex 500 mg p.o. four times daily. 3. Follow up in clinic early next week. Subjective: Patient is walking in her room. She states that her leg feels much improved. Notes the residual remaining area of erythema on the inside of her left thigh. No new fevers or chills. Objective: Cefazolin # 2 Vital Signs Temp Pulse Resp BP Pulse Ox 36.6 C 80 16 132/86 H 93 04/22/17 15:34 04/22/17 15:34 04/22/17 15:34 04/22/17 15:34 04/22/17 15:34 Microbiology 04/18/17 20:00 Gram Stain - Final Toe - Swab Wound Culture - Final Staphylococcus Aureus Streptococcus Pyogenes Grp A Laboratory Results 04/21/17 03:58 04/22/17 04:17 04/21/17 04/22/17 04/23/17 05:59 05:59 05:59 Intake Total 3000 1250 450 Balance 3000 1250 450 ESR 19 MM/HR (0-30) 04/18/17 20:30 - Physical Exam General Appearance: WD/WN, alert, no apparent distress, non-toxic Respiratory: lungs clear, normal breath sounds, No respiratory distress Cardiac/Chest: regular rate, rhythm, No tachycardia Extremities: No non-tender (Small area on the inside of left thigh plywood scarfer tender. ), No normal inspection (Small residual area of erythema remains on the inside of the left thigh. Remainder of erythema within the previously drawn borders gone.) Skin: normal color, warm/dry, No rash Neuro/Psych: alert, normal mood/affect, oriented x 3 ICD10 Worksheet Patient Problems: Problems Problem Status Onset Cellulitis Acute Severe sepsis Acute
== END 2017-04-22 17:53 | disposition home or self-care (01) | DRG 872 ==
LOC: CED 14:32 → CEDHOLD 18:04 → F1N 18:58
PROVIDERS: ADMIT Hospitalist; ATTEND Internal Medicine
DX: A41.9 Sepsis, unspecified organism (principal); R65.20 Severe sepsis without septic shock; L03.116 Cellulitis of left lower limb; B95.5 Unspecified streptococcus as the cause of diseases classified elsewhere; E11.621 Type 2 diabetes mellitus with foot ulcer; L97.529 Non-pressure chronic ulcer of other part of left foot with unspecified severity; E11.40 Type 2 diabetes mellitus with diabetic neuropathy, unspecified; I10 Essential (primary) hypertension; N39.0 Urinary tract infection, site not specified; B96.20 Unspecified Escherichia coli [E. coli] as the cause of diseases classified elsewhere; E78.5 Hyperlipidemia, unspecified
CPT/HCPCS: 80048-PO; 81003-PO; 81015-PO; 83605-PO; 85025-PO; 93971-PO; 96365; 97161-GP; J0690; J1200; J1335; J1650; J1815; J2543; J3370

== ENCOUNTER → 2017-08-27 | Outpatient (CLI) | payer OTHER | LOC: BRMIMAGING 10:49 | PROVIDERS: ATTEND Nurse Practitioner | DX: Z12.31 Encounter for screening mammogram for malignant neoplasm of breast (principal); Z80.3 Family history of malignant neoplasm of breast | CPT/HCPCS: G0202 ==

== ENCOUNTER → 2018-11-22 | Outpatient (CLI) | payer MEDICAID | LOC: BRMIMAGING 13:21 | PROVIDERS: ATTEND Nurse Practitioner | DX: Z12.31 Encounter for screening mammogram for malignant neoplasm of breast (principal); Z80.3 Family history of malignant neoplasm of breast ==

== ENCOUNTER 2019-02-16 05:44 | Day surgery (SDC) | payer MEDICAID ==
[2019-02-16] MEDS ORDERED: CLINDAMYCIN 900 MG/DEXTROSE 50 ML IV ONE (06:03)
[2019-02-16] MEDS ORDERED: LR 1,000 ML IV ONE (06:04)
[2019-02-16] MEDS ORDERED: BACITRACIN 50,000 UNITS/10 ML SYR IRR ONE (06:57)
[2019-02-16] MEDS ORDERED: BUPIVACAINE 0.25% 30 ML SDV ONE (06:57)
[2019-02-16] MEDS ORDERED: BUPIVACAINE/EPI 0.25% 30 ML SDV ONE (06:57)
[2019-02-16] MEDS ORDERED: MIDAZOLAM 2 MG/2 ML VIAL IVP ONE (07:00)
[2019-02-16] MEDS ORDERED: ACETAMINOPHEN 500 MG TAB PO PRN (07:04)
[2019-02-16] MEDS ORDERED: fentaNYL 100 MCG/2 ML INJ IVP PRN (07:04)
[2019-02-16] MEDS ORDERED: DEXAMETHASONE 4 MG/ML VIAL IVP PRN (07:04)
[2019-02-16] MEDS ORDERED: NALOXONE HCL 0.4 MG/ML INJ IVP PRN (07:04)
[2019-02-16] MEDS ORDERED: ONDANSETRON 4 MG/2 ML VIAL IVP PRN (07:04)
[2019-02-16] MEDS ORDERED: HYDROmorphONE/DILAUDID 1 MG/ML INJ IVP PRN (07:04)
[2019-02-16] MEDS ORDERED: LR 500 ML IV PRN (07:04)
[2019-02-16] MEDS ORDERED: PROMETHAZINE HCL 25 MG/ML INJ IVP PRN (07:04)
--- NOTE | 2019-02-16 07:04 | PDANEPAE ---
ANE Past Medical History - Cardiovascular History Hx Hypertension: Yes Hx Arrhythmias: No Hx Chest Pain: No Hx Coronary Artery / Peripheral Vascular Disease: No Hx CHF / Valvular Disease: No Hx Palpitations: No - Pulmonary History Hx COPD: No Hx Asthma/Reactive Airway Disease: No Hx Recent Upper Respiratory Infection: No Hx Oxygen in Use at Home: No Hx Sleep Apnea: No Sleep Apnea Screening Result - Last Documented: Positive - Neurologic History Hx Cerebrovascular Accident: No Hx Seizures: No Hx Dementia: No - Endocrine History Hx Diabetes: Yes Obesity: moderate Endocrine History Comment: NIDDM type 2 - Renal History Hx Renal Disorders: No - Liver History Hx Hepatic Disorders: No - Neurological & Psychiatric Hx Hx Neurological and Psychiatric Disorders: Yes Neurological / Psychiatric History Comment: neuropathy in feet - Cancer History Hx Cancer: No - Congenital Disorder History Hx Congenital Disorders: Yes Congenital History Comment: diabetes - GI History GERD: no Hx Gastrointestinal Disorders: No - Other Health History Other Health History: none - Chronic Pain History Chronic Pain: No - Surgical History Prior Surgeries: none in last 5 yrs. hysterectomy 17 yrs ago ANE Review of Systems Review of Systems: - Exercise capacity METS (RN): 4 METS ANE Patient History - Allergies Allergies/Adverse Reactions: piperacillin [From Zosyn] Allergy (Verified 01/31/19 13:06) Unknown - Home Medications Home medications: home medication list seen and reviewed Home Medications: Aspirin [Aspirin 81mg (*)] 04/18/17 [Last Taken 1 Week Ago ~02/09/19] FLUoxetine [Prozac 20 MG (*)] 04/18/17 [Last Taken 02/15/19] Glimepiride [Amaryl 2 MG (*)] 04/18/17 [Last Taken 02/15/19] Losartan Potassium [Cozaar 50 mg (*)] 04/18/17 [Last Taken 02/15/19] Metformin HCl [Metformin 1000 mg] 04/18/17 [Last Taken 02/15/19] Simvastatin [Zocor] 04/18/17 [Last Taken 02/15/19] Vitamin B Complex [B Complex] 04/18/17 [Last Taken 1 Week Ago ~02/09/19] Cephalexin [Keflex (*)] 01/31/19 [Last Taken Unknown] Gabapentin [Neurontin 300 MG (*)] 01/31/19 [Last Taken 02/15/19] - NPO status NPO Status: no food or drink >8 hours NPO Since - Liquids (Date): 02/15/19 NPO Since - Liquids (Time): 18:30 NPO Since - Solids (Date): 02/15/19 NPO Since - Solids (Time): 18:30 - Anes Hx Anes Hx: no prior problems - Smoking Hx Smoking Status: Never smoked - Family Anes Hx Family Hx Anesthesia Complications: none ANE Labs/Vital Signs - Vital Signs Blood Pressure: 125/96 Heart Rate: 72 Respiratory Rate: 16 O2 Sat (%): 94 Height: 170.18 cm Weight: 81.647 kg ANE Physical Exam - Airway Neck exam: FROM Mallampati Score: Class 2 Mouth exam: normal dental/mouth exam - Pulmonary Pulmonary: no respiratory distress, no rales or rhonchi, clear to auscultation - Cardiovascular Cardiovascular: regular rate and rhythym, no murmur, rub, or gallop - ASA Status ASA Status: II ANE Anesthesia Plan Anesthesia Plan: MAC
[2019-02-16] MEDS ORDERED: fentaNYL 100 MCG/2 ML INJ ONE (07:09)
[2019-02-16] MEDS ORDERED: PROPOFOL 200 MG/20 ML VIAL ONE ×2 (07:10→07:40)
--- NOTE | 2019-02-16 07:22 | PDHPUP ---
History & Physical Update H&P update statement: This history and physical update is based on an assessment of the patient which was completed after admission or registration (within 24 hours), but prior to the surgery/procedure. H&P update: H&P reviewed & patient examined, no change in patient's condition since H&P completed
--- NOTE | 2019-02-16 08:13 | POSTOPPROG ---
Post Op Note Date of Operation: 02/16/19 Surgeon: Puneet Gaona Rn Bsn: none Anesthesiologist: Zuleika Anesthesia: IV Sedation Pre-op Diagnosis: hammertoe right 2nd Post-op Diagnosis: hammertoe right 2nd and dorsal mtpj contraction Indication: pain Procedure: PIPJ fusion, dorsal capsulotomy and tenotomy Findings: none Inf/Abcess present in the surg proc area at time of surgery?: No Depth: Superfical (Skin SQ) EBL: Minimal Total fluids administered: 10cc 9/1 .25% marcaine plain and with epi Complications: none Bowel Protocol: No Clean Closure Performed: Yes
--- NOTE | 2019-02-16 08:20 | POSTANESTH ---
Post Anesthetic Evaluation Cardiovascular Status: Normal, Stable, Similar to Pre-Op Cond Respiratory Status: Normal, Stable, Similar to Pre-op Cond. Level of Consciousness/Mental Status: Can Participate in Eval, Alert and Oriented Pain Control: Adequate, Prn Tx Ordered Nausea/Vomiting Control: Adequate, Prn Tx Ordered Complications Possibly Related to Anesthesia: None Noted
--- NOTE | 2019-02-16 09:40 | GOP ---
[f rep st] OPERATIVE REPORT DATE OF OPERATION: 02/16/2019 SURGEON: Puneet Gaona DPM SMOKE AND FLAME SPECIALIST: None. ANESTHESIA: Local with MAC. ANESTHESIOLOGIST: Dr. To. PREOPERATIVE DIAGNOSIS: Hammertoe, right 2nd digit. POSTOPERATIVE DIAGNOSIS: 1. Hammertoe, right 2nd digit. 2. Contraction, right 2nd metatarsophalangeal joint. PROCEDURE PERFORMED: 1. Hammertoe correction by proximal interphalangeal joint fusion, right 2nd digit. 2. Dorsal capsulotomy, right 2nd digit. 3. Extensor digitorum longus tenotomy, right 2nd digit. FINDINGS: ESTIMATED BLOOD LOSS: Minimal. DESCRIPTION OF PROCEDURE: The patient presented to [facility] and was cleared for the intended procedure. The patient was taken the Operating Room and placed on the table in the supine p osition. IV sedation was started per the Anesthesia department. The foot was anesthetized in infilt rative nerve block fashion. The foot was prepped, scrubbed, and draped in the usual sterile fashion following exsanguination by elevation with an Esmarch bandage. A pneumatic ankle tourniquet was infl ated to 225 mmHg. At this time, attention was directed to the dorsal aspect of the right 2nd digit, where the obvious r ubbing and irritation over the proximal interphalangeal joint was noted. It was decided that 2 conve rging semi-elliptical incisions would be made around the scabbing and hyperkeratotic tissue. The int erposing skin tissue was dissected free and removed as dissection was carried deep utilizing sharp an d blunt dissection, making sure that all neurovascular structures were identified and retracted at th is time. All superficial bleeders were cauterized. The incision was carried down deep to the level of the extensor apparatus, which was sharply transected at the level of the proximal interphalangeal joint and dissected free proximally after the medial and collateral lateral ligaments had been releas ed to allow for adequate exposure to the head of the proximal phalanx and base of the intermediate ph alanx. At this time, utilizing a sagittal saw, the head of the proximal phalanx was resected. The b ase of the proximal phalanx was denuded of any cartilage utilizing a high-speed bur. The area was fl ushed with copious amounts of sterile saline at this time. Upon completion of this, the area was dri lled appropriately for the HammerLock implant on both sides of the fusion site. The area was measure d and it was decided that a medium, 0-degree implant would be utilized. The implant was placed proxi violet into the proximal phalanx before insertion into the intermediate phalanx. Good compression was obtained, and was confirmed by C-arm fluoroscopy that we had excellent alignment. The area was agai n flushed with copious amounts of sterile saline. At this time, the extensor apparatus was reapproxi mated with 3-0 Vicryl, followed by skin closure with 5-0 nylon. Visualization of the toe at this jane e showed that it was sitting in a rectus alignment, but had some dorsal contraction from the metatars ophalangeal joint level. It was decided that a dorsal capsulotomy and extensor tenotomy would be per formed. A 64 [place] blade was then introduced through a stab incision at the level of the joint and the tenotomy and capsulotomy were performed. The toe then sat down in the same transverse plane as t he other digits. All areas were dressed with Betadine-soaked Adaptics, 4x4s, Zainab, and Coban. The patient was taken to the Recovery Room vital signs stable, vascular supply intact digits 1 through 5 bilaterally after the pneumatic ankle tourniquet had been released for a total tourniquet time of 27 minutes. PATHOLOGY: None. HEMOSTASIS: PAT at 225 mmHg by 27 minutes. MATERIALS: HammerLock medium, 0 degrees. INJECTABLES: 10 cc 9:1 ratio 0.25% Marcaine plain, 0.25% Marcaine with epinephrine preoperatively. COMPLICATIONS: None. /[id number]/MODL
[2019-02-16 09:58] VITALS: BP 133/88
== END 2019-02-16 09:50 | disposition home or self-care (01) ==
LOC: FSGY 05:44
PROVIDERS: ATTEND Podiatrist Primary Podiatric Medicine
PROC: 0SGP0JZ Fusion of Right Toe Phalangeal Joint with Synthetic Substitute, Open Approach (ICD-10-PCS; principal; 2019-02-16 07:15)
PROC: 0L8V0ZZ Division of Right Foot Tendon, Open Approach (ICD-10-PCS; principal; 2019-02-16 07:15)
DX: M20.40 Other hammer toe(s) (acquired), unspecified foot (principal); G62.9 Polyneuropathy, unspecified; I10 Essential (primary) hypertension; E11.9 Type 2 diabetes mellitus without complications
CPT/HCPCS: C1713; J2250; J2704; J3010